=== PATIENT | female | born 1970 | race Caucasian/White ===

== ENCOUNTER → 2020-04-01 | Day surgery (SDC) | payer BC ==
[~2020-04-01] MED LIST: ADDERALL 30 MG30 MG PO; ATENOLOL50 MG PO; ATORVASTATIN CA20 MG PO; FENOFIBRATE134 MG PO; KETAMINE HCL INJ 50 MG/ML 10 ML VIAL ONE; LIDOCAINE HCL 2% LOCAL INJ 5 ML SDV VIAL INJ ONE; LOSARTAN-HCTZ1 EAC2 PO; METFORMIN HCL1000 MG PO; MIDAZOLAM HCL 2 MG/2 ML VIAL ONE; OMEPRAZOLE40 MG PO; PAROXETINE HCL20 MG PO; PLEXUS PO; PROPOFOL IV EMULSION 10 MG/ML 20 ML VIAL ONE; SIMETHICONE 40 MG/0.6 ML BTL ONE; TRADJENTA5 MG PO
[2020-04-01 12:35] VITALS: BP 133/77
== END | disposition home or self-care (01) ==
LOC: OR 09:01
PROVIDERS: ATTEND Internal Medicine Gastroenterology
DX: Z12.11 Encounter for screening for malignant neoplasm of colon (principal); K29.50 Unspecified chronic gastritis without bleeding; K21.9 Gastro-esophageal reflux disease without esophagitis; K44.9 Diaphragmatic hernia without obstruction or gangrene; K64.8 Other hemorrhoids; Z71.3 Dietary counseling and surveillance; G47.33 Obstructive sleep apnea (adult) (pediatric); E66.01 Morbid (severe) obesity due to excess calories; E11.9 Type 2 diabetes mellitus without complications; I10 Essential (primary) hypertension; E78.5 Hyperlipidemia, unspecified; F90.9 Attention-deficit hyperactivity disorder, unspecified type; F32.9 Major depressive disorder, single episode, unspecified; Z88.6 Allergy status to analgesic agent; Z01.810 Encounter for preprocedural cardiovascular examination; Z01.812 Encounter for preprocedural laboratory examination; Z20.822 Contact with and (suspected) exposure to COVID-19; Z68.41 Body mass index [BMI] 40.0-44.9, adult; Z86.19 Personal history of other infectious and parasitic diseases; Z86.16 Personal history of COVID-19
CPT/HCPCS: 36415; 43239; 45378; 81025; 82948; 93005; J2001; J2250; J2704; U0002

== ENCOUNTER 2021-02-10 07:55 | Inpatient (IN) | payer BC ==
[2021-02-10] VITALS (11 sets, daily range): BP systolic 87–141; BP diastolic 47–112
[~2021-02-10] VITALS: Ht 162.6 cm; Wt 109.8 kg
[~2021-02-10 07:55] MED LIST changes: -KETAMINE HCL INJ 50 MG/ML 10 ML VIAL ONE; -LIDOCAINE HCL 2% LOCAL INJ 5 ML SDV VIAL INJ ONE; -MIDAZOLAM HCL 2 MG/2 ML VIAL ONE; -PROPOFOL IV EMULSION 10 MG/ML 20 ML VIAL ONE; -SIMETHICONE 40 MG/0.6 ML BTL ONE
[2021-02-10] MEDS ORDERED: SODIUM CHLORIDE 0.9% 1000ML 1,000 ML IV STA ×3 (08:10→10:38)
[2021-02-10] MEDS ORDERED: ACETAMINOPHEN 325 MG TAB PO STA (08:10)
[2021-02-10] MEDS ORDERED: DEXAMETHASONE SOD PHOS 10 MG/1 ML VIAL IV ONE (08:15)
[2021-02-10] MEDS ORDERED: CEFTRIAXONE 1 GM in SODIUM CHLORIDE 0.9% 50ML 50 ML IV ONE (08:15)
[2021-02-10 08:49] LABS: BASOPHILS % 0.2 % (0.0-1.0); HEMATOCRIT 45.9 % (34.2-44.1); HEMOGLOBIN 14.5 g/dL (12.0-16.0); LYMPHOCYTES # (AUTO) 0.4 (1.0-3.2); LYMPHOCYTES % 8.2 % (18.0-39.1); MEAN CORPUSCULAR HEMOGLOBIN 29.1 pg (28-32); MEAN CORPUSCULAR HGB CONC 31.6 g/dL (31-35); MEAN CORPUSCULAR VOLUME 92.2 fL (81-99); MONOCYTES # (AUTO) 0.3 (0.2-0.8); MONOCYTES % 5.3 % (4.4-11.3); NEUTROPHILS % 83.3 % (38.7-80.0); PLATELET COUNT 394 x10e3/uL (140-360); RED BLOOD COUNT 4.98 x10e6/uL (3.6-5.1); RED CELL DISTRIBUTION WIDTH 14.8 % (11.7-14.4)
[2021-02-10] MEDS ORDERED: CEFTRIAXONE 1 GM VIAL ONE (09:06)
[2021-02-10 10:14] LABS: ALBUMIN 2.1 g/dL (3.5-5.0); ALBUMIN/GLOBULIN RATIO 0.6 (0.8-2.0); ANION GAP 17.6 mmol/L (8-16); CREATININE, SERUM 0.51 mg/dL (0.57-1.11)
[2021-02-10 10:20] LABS: CREATINE KINASE MB 0.4 ng/mL (0-5.0); POTASSIUM 2.6 mmol/L (3.5-5.1)
[2021-02-10] MEDS ORDERED: POTASSIUM CHLORIDE 20 MEQ TAB CR PO STA (10:39)
[2021-02-10] MEDS ORDERED: SODIUM CHLORIDE 0.9% 1000ML 1,000 ML IV SCH (10:45)
[2021-02-10] MEDS ORDERED: ONDANSETRON HCL INJ 2MG/ML 2ML 2 MG/ML VIAL IV STA (10:48)
[2021-02-10] MEDS ORDERED: LACTATED RINGER'S 1,000 ML INJ SCH (13:00)
[2021-02-10] MEDS ORDERED: DEXTROSE 50% SYRINGE 50 ML IV PRN ×2 (13:15→19:00)
[2021-02-10] MEDS ORDERED: POTASSIUM CHLORIDE 20 MEQ TAB CR PO ONE (13:30)
[2021-02-10] MEDS ORDERED: THIAMINE HCL INJ 100 MG/ML 2ML VIAL IV ONE (13:30)
[2021-02-10] MEDS ORDERED: CEFTRIAXONE 1 GM in SODIUM CHLORIDE 0.9% 50ML 50 ML IV SCH (14:00)
[2021-02-10] MEDS ORDERED: INSULIN REGULAR, HUMAN 100 UNIT/1 ML SQ SCH (16:30)
[2021-02-10] MEDS ORDERED: IOPAMIDOL 370 MG/ML 200 ML INFUS..BTL INJ ONE (16:48)
[2021-02-10] MEDS ORDERED: SODIUM CHLORIDE 0.9% 50ML 50 ML ONE (16:48)
[2021-02-10] MEDS ORDERED: PANTOPRAZOLE SOD 40 MG TABEC PO SCH (17:00)
[2021-02-10] MEDS ORDERED: SODIUM CHLORIDE 0.9% 1000ML 1,000 ML IV ONE ×2 (19:00→20:00)
[2021-02-10] MEDS ORDERED: NOREPINEPHRINE 8 MG/D5W 250 ML 250 ML IV PRN (19:00)
[2021-02-10] MEDS ORDERED: NOREPINEPHRINE 8 MG/D5W 250 ML 0 ML ONE (19:11)
[2021-02-11] VITALS: BP 134/113
[2021-02-11] MEDS ORDERED: POTASSIUM CHLORIDE 20 MEQ TAB CR PO SCH (06:30)
[2021-02-11] MEDS ORDERED: ATORVASTATIN 40 MG TAB PO SCH (09:00)
== END 2021-02-11 00:40 | disposition short-term general hospital (02) | DRG 194 ==
LOC: ER 07:59 → ERHOLD 11:14 → ICU 11:39
PROVIDERS: ADMIT Family Medicine; ATTEND Family Medicine
DX: J18.9 Pneumonia, unspecified organism (principal); E87.2 Acidosis; E87.0 Hyperosmolality and hypernatremia; K56.609 Unspecified intestinal obstruction, unspecified as to partial versus complete obstruction; Z20.822 Contact with and (suspected) exposure to COVID-19; R06.03 Acute respiratory distress; R09.02 Hypoxemia; E87.6 Hypokalemia; Z88.5 Allergy status to narcotic agent; I10 Essential (primary) hypertension; E11.9 Type 2 diabetes mellitus without complications; E78.5 Hyperlipidemia, unspecified; Z98.84 Bariatric surgery status
CPT/HCPCS: 36415; 71045; 71260; 74018; 74176; 80053; 82550; 82553; 82948; 83605; 84484; 85025; 87040; 93005; 94799; 99284; J0456; J0696; J1100; J1817; J2405; J3411; J7030; J7050; J7121; Q9967; U0002